=== PATIENT | female | born 1990 | race Caucasian/White ===

== ENCOUNTER 2016-05-30 09:28 | Inpatient (IN) | payer BC, OTHER ==
[~2016-05-30] VITALS: Ht 165.1 cm; Wt 65.5 kg
[~2016-05-30 09:28] MED LIST: ACETAMINOPHEN 325 MG TAB PO ONE
[2016-05-30] MEDS ORDERED: ACETAMINOPHEN 325 MG TAB PO ONE ×2 (09:45→12:42)
[2016-05-30 10:24] LABS: Basophils # (auto) 0 uL; DEFINITIVE VIEW TRANSMISSION; Eosinophils # (auto) 0 uL; Hematocrit 37.5 % (36.0-46.0); Hemoglobin 12.3 g/dL (12.2-16.2); Lymphocytes # (auto) 0.9 uL; Lymphocytes % (auto) 4.3 % (10.0-50.0); Mean Corpuscular Hemoglobin 27.2 pg (28.0-32.0); Mean Corpuscular Hgb Conc. 32.8 g/dL (32.0-36.0); Mean Corpuscular Volume 82.9 fL (80.0-100.0); Mean Platelet Volume 11.4 fL (7.4-10.4); Monocytes % (auto) 9.3 % (0.0-12.0); Neutrophils # (auto) 18.6 uL; Neutrophils % (auto) 86.4 % (37.0-80.0); Platelet Count (auto) 179 10^3/uL (140-450); Red Cell Distribution Width 14.3 % (11.6-16.0); White Blood Cell 21.5 10^3/uL (4.4-10.8)
[2016-05-30 10:27] LABS: Urine Bilirubin Negative (Negative); Urine Color Yellow (Yellow); Urine Glucose Normal (Normal); Urine Ketone TRACE (Negative); Urine Mucus FEW (None Seen); Urine Nitrite Negative (Negative); Urine RBC 8 /hpf (0 - 4); Urine Squamous Epithelial Cell FEW /hpf (<5); Urine Urobilinogen Normal (Negative); Urine WBC Clumps PRESENT /hpf (None Seen); Urine pH 5.5 (5.0-8.0)
[2016-05-30 10:28] LABS: Urine Blood 2+ /uL (Negative)
[2016-05-30 10:30] LABS: Albumin 3.5 g/dL (3.4-5.0); BUN/Creatinine Ratio 7.9; Bilirubin, Total 0.5 mg/dL (0.2-1.0); Calcium 8.5 mg/dL (8.5-10.1); Potassium 3.7 mmol/L (3.5-5.1); Total Protein 8.1 g/dL (6.4-8.2)
[2016-05-30] MEDS ORDERED: SODIUM CHLORIDE 0.9% 1,000 ML IVB ONE (11:23)
[2016-05-30] MEDS ORDERED: SODIUM CHLORIDE 0.9% 1,000 ML IV ONE (11:30)
[2016-05-30] MEDS ORDERED: cefTRIAXone 1GM/50ML D5W 50 ML IV ONE ×2 (11:30→13:30)
[2016-05-30 11:49] LABS: INR 1.09 (0.9-1.15); Partial Thromboplastin Time 28.7 sec (22.64-33.71); Prothrombin Time 11.8 sec (9.37-12.3)
[2016-05-30] MEDS: SODIUM CHLORIDE 0.9% 1,000 ML IV SCH ×2 (13:28→20:08)
[2016-05-30] MEDS ORDERED: KETOROLAC TROMETH 30 MG/ML 1ML VIAL IV ONE (13:30)
[2016-05-30] MEDS ORDERED: TEMAZEPAM 15 MG CAP PO PRN (13:30)
[2016-05-30] MEDS ORDERED: MORPHINE SULF INJ 2 MG/ML SYRINGE 1ML IV PRN (13:30)
[2016-05-30] MEDS: FAMOTIDINE (10MG/ML) 2ML VL IV SCH (13:30)
[2016-05-30] MEDS ORDERED: NITROGLYCERIN 0.4 MG SL TAB SL PRN (13:30)
[2016-05-30] MEDS ORDERED: LORazepam 0.5 MG TAB PO PRN (13:30)
[2016-05-30] MEDS: PROCHLORPERAZINE EDISYLATE 5 MG/ML 2ML VIAL IV PRN (17:59)
[2016-05-30] MEDS: MORPHINE SULF INJ 2 MG/ML SYRINGE 1ML IV PRN (17:59)
[2016-05-30] MEDS: HYDROcodone-ACET 5/325MG TAB PO PRN (20:53)
[2016-05-30] MEDS: ACETAMINOPHEN 500 MG TAB PO PRN (20:53)
[2016-05-30 21:54] VITALS: BP 115/67
[2016-05-31] MEDS: SODIUM CHLORIDE 0.9% 1,000 ML IV SCH ×4 (02:48→22:19)
[2016-05-31] MEDS: FAMOTIDINE (10MG/ML) 2ML VL IV SCH ×2 (03:02→13:47)
[2016-05-31] MEDS: MORPHINE SULF INJ 2 MG/ML SYRINGE 1ML IV PRN ×2 (03:02→08:32)
[2016-05-31] MEDS: PROCHLORPERAZINE EDISYLATE 5 MG/ML 2ML VIAL IV PRN ×3 (03:03→17:26)
[2016-05-31] MEDS: ACETAMINOPHEN 500 MG TAB PO PRN (04:06)
[2016-05-31 05:00] VITALS: BP 92/50
[2016-05-31 05:49] LABS: Basophils # (auto) 0 uL; Basophils % (auto) 0.1 % (0.0-2.0); Eosinophils # (auto) 0 uL; Hemoglobin 10.6 g/dL (12.2-16.2); Lymphocytes # (auto) 0.8 uL; Mean Corpuscular Hemoglobin 28.4 pg (28.0-32.0); Mean Corpuscular Volume 83.3 fL (80.0-100.0); Mean Platelet Volume 11.3 fL (7.4-10.4); Monocytes # (auto) 1.1 uL; Monocytes % (auto) 8.4 % (0.0-12.0); Neutrophils # (auto) 11.2 uL; Neutrophils % (auto) 85.5 % (37.0-80.0); Platelet Count (auto) 140 10^3/uL (140-450); Red Cell Distribution Width 14.3 % (11.6-16.0); SUSPECT VIEW TRANSMISSION; White Blood Cell 13.1 10^3/uL (4.4-10.8)
[2016-05-31 08:00] VITALS: BP 106/66
[2016-05-31] MEDS: cefTRIAXone 1GM/50ML D5W 50 ML IV SCH (09:38)
[2016-05-31] MEDS: HYDROcodone-ACET 5/325MG TAB PO PRN ×2 (11:39→17:21)
[2016-05-31 12:30] VITALS: BP 103/63
[2016-05-31 16:36] VITALS: BP 108/60
[2016-05-31 22:00] VITALS: BP 113/66
[2016-06-01] MEDS: PROCHLORPERAZINE EDISYLATE 5 MG/ML 2ML VIAL IV PRN ×2 (00:04→10:57)
[2016-06-01] MEDS: MORPHINE SULF INJ 2 MG/ML SYRINGE 1ML IV PRN (00:04)
[2016-06-01] MEDS: FAMOTIDINE (10MG/ML) 2ML VL IV SCH ×2 (01:28→13:30)
[2016-06-01 05:00] VITALS: BP 113/69
[2016-06-01 05:51] LABS: Basophils # (auto) 0 uL; Basophils % (auto) 0.2 % (0.0-2.0); Eosinophils # (auto) 0 uL; Hematocrit 29.8 % (36.0-46.0); Lymphocytes # (auto) 1.2 uL; Lymphocytes % (auto) 14.6 % (10.0-50.0); Mean Corpuscular Hemoglobin 27.9 pg (28.0-32.0); Mean Corpuscular Hgb Conc. 33.5 g/dL (32.0-36.0); Mean Corpuscular Volume 83.5 fL (80.0-100.0); Mean Platelet Volume 11.4 fL (7.4-10.4); Monocytes # (auto) 1.1 uL; Monocytes % (auto) 13.1 % (0.0-12.0); Neutrophils # (auto) 5.9 uL; Neutrophils % (auto) 72.1 % (37.0-80.0); Platelet Count (auto) 156 10^3/uL (140-450); Red Cell Distribution Width 14.4 % (11.6-16.0); SUSPECT VIEW TRANSMISSION; White Blood Cell 8.1 10^3/uL (4.4-10.8)
[2016-06-01] MEDS: HYDROcodone-ACET 5/325MG TAB PO PRN ×3 (05:56→16:48)
[2016-06-01 06:02] LABS: Potassium 3.4 mmol/L (3.5-5.1)
[2016-06-01 06:03] LABS: BUN/Creatinine Ratio 3.7; Calcium 7.8 mg/dL (8.5-10.1)
[2016-06-01] MEDS: SODIUM CHLORIDE 0.9% 1,000 ML IV SCH ×2 (07:21→14:21)
[2016-06-01 09:00] VITALS: BP 103/64
[2016-06-01] MEDS: cefTRIAXone 1GM/50ML D5W 50 ML IV SCH (09:07)
[2016-06-01] MEDS ORDERED: POTASSIUM CHL 20 Meq TABLET PO ONE (12:00)
[2016-06-01 13:00] VITALS: BP 109/61
[2016-06-01] MEDS: ACETAMINOPHEN 500 MG TAB PO PRN ×2 (15:08→23:03)
[2016-06-01 16:57] VITALS: BP 119/65
[2016-06-01 22:00] VITALS: BP 109/52
[2016-06-02] MEDS: FAMOTIDINE (10MG/ML) 2ML VL IV SCH ×2 (01:31→13:11)
[2016-06-02] MEDS: SODIUM CHLORIDE 0.9% 1,000 ML IV SCH ×3 (03:21→22:41)
[2016-06-02 05:00] VITALS: BP 101/64
[2016-06-02 06:20] LABS: Basophils # (auto) 0 uL; Basophils % (auto) 0.3 % (0.0-2.0); Eosinophils # (auto) 0 uL; Eosinophils % (auto) 0.2 % (0.0-7.0); Hematocrit 31.6 % (36.0-46.0); Hemoglobin 10.3 g/dL (12.2-16.2); Lymphocytes # (auto) 2.1 uL; Lymphocytes % (auto) 23.9 % (10.0-50.0); Mean Corpuscular Hemoglobin 27.1 pg (28.0-32.0); Mean Corpuscular Hgb Conc. 32.5 g/dL (32.0-36.0); Mean Corpuscular Volume 83.2 fL (80.0-100.0); Mean Platelet Volume 11.2 fL (7.4-10.4); Monocytes # (auto) 1.1 uL; Monocytes % (auto) 12.1 % (0.0-12.0); Neutrophils # (auto) 5.6 uL; Neutrophils % (auto) 63.5 % (37.0-80.0); Platelet Count (auto) 164 10^3/uL (140-450); Red Cell Distribution Width 14.6 % (11.6-16.0); SUSPECT VIEW TRANSMISSION; White Blood Cell 8.9 10^3/uL (4.4-10.8)
[2016-06-02] MEDS: ACETAMINOPHEN 500 MG TAB PO PRN (07:42)
[2016-06-02 08:30] VITALS: BP 113/72
[2016-06-02] MEDS: cefTRIAXone 1GM/50ML D5W 50 ML IV SCH (08:54)
[2016-06-02 12:30] VITALS: BP 106/68
[2016-06-02] MEDS: HYDROcodone-ACET 5/325MG TAB PO PRN (13:11)
[2016-06-02 17:07] VITALS: BP_DIAS 122
[2016-06-02 22:00] VITALS: BP 123/80
[2016-06-03] MEDS: HYDROcodone-ACET 5/325MG TAB PO PRN (00:26)
[2016-06-03] MEDS: FAMOTIDINE (10MG/ML) 2ML VL IV SCH ×2 (01:43→13:30)
[2016-06-03 05:30] VITALS: BP 107/64
[2016-06-03 05:44] LABS: Hematocrit 29.6 % (36.0-46.0)
[2016-06-03 05:49] LABS: BUN/Creatinine Ratio 8.8; Calcium 7.7 mg/dL (8.5-10.1); Potassium 3.6 mmol/L (3.5-5.1)
[2016-06-03] MEDS: SODIUM CHLORIDE 0.9% 1,000 ML IV SCH ×2 (06:13→08:54)
[2016-06-03 08:27] VITALS: BP 111/62
[2016-06-03] MEDS: cefTRIAXone 1GM/50ML D5W 50 ML IV SCH (08:53)
[2016-06-03 12:41] VITALS: BP 108/62
[2016-06-03] MEDS ORDERED: CIPR-217 PO (13:04)
[2016-06-03 13:09] VITALS: BP 108/62
== END 2016-06-03 14:00 | disposition home or self-care (01) | DRG 872 ==
LOC: ER 09:28 → TELE 09:29 → TELE-WESTW 17:44
PROVIDERS: ADMIT Internal Medicine; ATTEND Internal Medicine
DX: A41.9 Sepsis, unspecified organism (principal); N12 Tubulo-interstitial nephritis, not specified as acute or chronic; E87.1 Hypo-osmolality and hyponatremia; N20.0 Calculus of kidney; R00.0 Tachycardia, unspecified; B96.20 Unspecified Escherichia coli [E. coli] as the cause of diseases classified elsewhere; R73.9 Hyperglycemia, unspecified; Z87.440 Personal history of urinary (tract) infections; Z80.3 Family history of malignant neoplasm of breast
CPT/HCPCS: 36415; 71010; 74176; 80048; 80053; 81001; 81025; 82962; 83605; 83735; 84132; 85014; 85018; 85025; 85610; 85652; 85730; 87040; 87086; 87088; 87186; 94761; 96361; 96365; 96375; J0696; J3490

== ENCOUNTER → 2017-08-12 | Outpatient (CLI) | payer OTHER ==
[~2017-08-12] MED LIST changes: -ACETAMINOPHEN 325 MG TAB PO ONE; +CIPR-217 PO
[2017-08-12 12:41] LABS: Basophils # (auto) 0 uL; Basophils % (auto) 0.2 % (0.0-2.0); Eosinophils # (auto) 0 uL; Eosinophils % (auto) 0.5 % (0.0-7.0); Hematocrit 36.4 % (36.0-46.0); Hemoglobin 12.2 g/dL (12.2-16.2); Lymphocytes % (auto) 20.4 % (10.0-50.0); Mean Corpuscular Hemoglobin 28.1 pg (28.0-32.0); Mean Corpuscular Hgb Conc. 33.6 g/dL (32.0-36.0); Mean Corpuscular Volume 83.7 fL (80.0-100.0); Monocytes # (auto) 0.5 uL; Neutrophils # (auto) 7.2 uL; Neutrophils % (auto) 73.9 % (37.0-80.0); Nucleated Red Blood Cells % 0.1 %; Platelet Count (auto) 209 10^3/uL (140-450); Red Blood Cells 4.34 10^6/uL (4.0-5.20); Red Cell Distribution Width 13.3 % (11.8-14.3); White Blood Cell 9.8 10^3/uL (4.4-10.8)
[2017-08-12 13:25] LABS: Alcohol, Urine < 3.0 mg/dL (0-5); Amphetamine Screen, Urine NEGATIVE (NEGATIVE); Barbiturate Scree,Urine NEGATIVE (NEGATIVE); Benzodiazephine Screen, Urine NEGATIVE (NEGATIVE); Cannabinoid Screen, Urine NEGATIVE (NEGATIVE); Cocaine Screen, Urine NEGATIVE (NEGATIVE); Opiate Scree,Urine NEGATIVE (NEGATIVE); Phencyclidine Screen, Urine NEGATIVE (NEGATIVE)
== END | disposition home or self-care (01) ==
LOC: LAB 11:42
PROVIDERS: ATTEND Specialist
DX: Z34.80 Encounter for supervision of other normal pregnancy, unspecified trimester (principal); Z20.2 Contact with and (suspected) exposure to infections with a predominantly sexual mode of transmission; Z3A.00 Weeks of gestation of pregnancy not specified
CPT/HCPCS: 36415; 80307; 83036; 85025; 86703; 86762; 86850; 86900; 86901; 87086; 87340

== ENCOUNTER 2017-10-13 17:25 | Observation (INO) | payer OTHER ==
[~2017-10-13] VITALS: Ht 165.1 cm; Wt 66.7 kg
[2017-10-13] MEDS ORDERED: PREN-96 PO (18:26)
[2017-10-13] MEDS ORDERED: TERBUTALINE SULFATE 1 MG/ML 1ML VIAL SC ONE (19:15)
== END 2017-10-13 19:14 | disposition home or self-care (01) | DRG 781 ==
LOC: LDRP 17:25
PROVIDERS: ADMIT Specialist; ATTEND Specialist
DX: O26.892 Other specified pregnancy related conditions, second trimester (principal); R10.9 Unspecified abdominal pain; Z3A.22 22 weeks gestation of pregnancy
CPT/HCPCS: 59025; 81002; G0378

== ENCOUNTER → 2017-11-21 | Outpatient (CLI) | payer OTHER ==
[~2017-11-21] MED LIST changes: +PREN-96 PO
[2017-11-21 10:07] LABS: Basophils # (auto) 0 uL; Basophils % (auto) 0.1 % (0.0-2.0); Eosinophils # (auto) 0 uL; Eosinophils % (auto) 0.4 % (0.0-7.0); Hematocrit 32.6 % (36.0-46.0); Hemoglobin 10.6 g/dL (12.2-16.2); Lymphocytes # (auto) 1.9 uL; Lymphocytes % (auto) 17.8 % (10.0-50.0); Mean Corpuscular Hgb Conc. 32.6 g/dL (32.0-36.0); Mean Corpuscular Volume 85.8 fL (80.0-100.0); Monocytes # (auto) 0.4 uL; Monocytes % (auto) 3.8 % (0.0-12.0); Neutrophils # (auto) 8.2 uL; Neutrophils % (auto) 77.9 % (37.0-80.0); Nucleated Red Blood Cells % 0.1 %; Platelet Count (auto) 265 10^3/uL (140-450); Red Cell Distribution Width 13.5 % (11.8-14.3); White Blood Cell 10.6 10^3/uL (4.4-10.8)
== END | disposition home or self-care (01) ==
LOC: LAB 08:54
PROVIDERS: ATTEND Specialist
DX: O99.810 Abnormal glucose complicating pregnancy (principal); Z3A.27 27 weeks gestation of pregnancy
CPT/HCPCS: 36415; 82951; 85025

== ENCOUNTER → 2018-01-10 | Outpatient (CLI) | payer OTHER ==
[2018-01-10 09:42] LABS: Basophils # (auto) 0 uL; Eosinophils # (auto) 0 uL; Hemoglobin 11.1 g/dL (12.2-16.2); Monocytes # (auto) 0.5 uL
[2018-01-10 09:45] LABS: Basophils % (auto) 0.2 % (0.0-2.0); Eosinophils % (auto) 0.4 % (0.0-7.0); Lymphocytes # (auto) 1.8 uL; Lymphocytes % (auto) 16.1 % (10.0-50.0); Mean Corpuscular Hemoglobin 27.2 pg (28.0-32.0); Mean Corpuscular Hgb Conc. 32.8 g/dL (32.0-36.0); Mean Corpuscular Volume 82.9 fL (80.0-100.0); Monocytes % (auto) 4.6 % (0.0-12.0); Neutrophils % (auto) 78.7 % (37.0-80.0); Nucleated Red Blood Cells % 0.1 %; Platelet Count (auto) 262 10^3/uL (140-450); Red Cell Distribution Width 13.2 % (11.8-14.3); White Blood Cell 11.5 10^3/uL (4.4-10.8)
== END | disposition home or self-care (01) ==
LOC: LAB 09:13
PROVIDERS: ATTEND Specialist
DX: O23.593 Infection of other part of genital tract in pregnancy, third trimester (principal); Z3A.34 34 weeks gestation of pregnancy
CPT/HCPCS: 36415; 85025; 87081

== ENCOUNTER 2018-01-31 10:45 | Observation (INO) | payer OTHER | END 2018-01-31 11:30 | disposition home or self-care (01) | DRG 833 | LOC: LDRP 10:45 | PROVIDERS: ADMIT Specialist; ATTEND Specialist | DX: O36.8130 Decreased fetal movements, third trimester, not applicable or unspecified (principal); Z3A.37 37 weeks gestation of pregnancy | CPT/HCPCS: 59025; 81002; G0378 ==

== ENCOUNTER 2018-02-12 13:55 | Observation (INO) | payer OTHER ==
[~2018-02-12 13:55] MED LIST changes: -CIPR-217 PO
== END 2018-02-12 15:15 | disposition home or self-care (01) | DRG 833 ==
LOC: LDRP 13:55
PROVIDERS: ADMIT Specialist; ATTEND Specialist
DX: O42.92 Full-term premature rupture of membranes, unspecified as to length of time between rupture and onset of labor (principal); O62.9 Abnormality of forces of labor, unspecified; O26.893 Other specified pregnancy related conditions, third trimester; N89.8 Other specified noninflammatory disorders of vagina; Z3A.39 39 weeks gestation of pregnancy
CPT/HCPCS: 59025; 76815; 81002; G0378

== ENCOUNTER 2018-02-17 07:00 | Inpatient (IN) | payer OTHER ==
[~2018-02-17] VITALS: Ht 165.1 cm; Wt 77.1 kg
[2018-02-17] MEDS ORDERED: LACT. RINGERS/OXYTOCIN 20UNITS 1,000 ML IV SCH (07:48)
[2018-02-17] MEDS ORDERED: PHISODERM TOP SOLN 240ML BTL TOP PRN (08:00)
[2018-02-17] MEDS ORDERED: NALBUPHINE HCL 10 MG/1ml INJECTION IV PRN (08:00)
[2018-02-17] MEDS ORDERED: METHYLERGONOVINE MALEATE 0.2 MG/ML AMP IM PRN (08:00)
[2018-02-17] MEDS ORDERED: LIDOCAINE 1% (LOCAL ANESTH.) PF 5ml SDV IJ ONE (08:00)
[2018-02-17] MEDS ORDERED: DERMOPLAST 60ML BOTTLE TOP PRN (08:00)
[2018-02-17] MEDS: LACTATED RINGER'S 1,000 ML IV SCH ×2 (08:25→12:49)
[2018-02-17 08:52] LABS: Basophils # (auto) 0 uL; Eosinophils # (auto) 0.1 uL; Lymphocytes # (auto) 2.2 uL; Monocytes # (auto) 0.5 uL; Red Cell Distribution Width 14.2 % (11.8-14.3); White Blood Cell 9.2 10^3/uL (4.4-10.8)
[2018-02-17 08:55] LABS: Basophils % (auto) 0.3 % (0.0-2.0); Hematocrit 29.8 % (36.0-46.0); Hemoglobin 9.9 g/dL (12.2-16.2); Mean Corpuscular Hemoglobin 26.4 pg (28.0-32.0); Mean Corpuscular Hgb Conc. 33.1 g/dL (32.0-36.0); Mean Corpuscular Volume 79.8 fL (80.0-100.0); Monocytes % (auto) 5.7 % (0.0-12.0); Neutrophils # (auto) 6.4 uL; Platelet Count (auto) 235 10^3/uL (140-450); Red Blood Cells 3.74 10^6/uL (4.0-5.20)
[2018-02-17 09:07] LABS: Urine Bacteria FEW /hpf (None Seen); Urine Blood Negative /uL (Negative); Urine Mucus FEW (None Seen); Urine WBC 7 /hpf (0 - 5)
[2018-02-17 09:10] LABS: Albumin 2.4 g/dL (3.4-5.0); Calcium 7.8 mg/dL (8.5-10.1); Potassium 3.6 mmol/L (3.5-5.1)
[2018-02-17 09:14] LABS: BUN/Creatinine Ratio 10.9; Bilirubin, Total 0.4 mg/dL (0.2-1.0); Total Protein 6.7 g/dL (6.4-8.2)
[2018-02-17 09:32] LABS: INR 0.87 (0.9-1.15); Partial Thromboplastin Time 26.7 sec (23.78-33.04); Prothrombin Time 9.4 sec (9.27-12.13)
[2018-02-17] MEDS ORDERED: ePHEDrine SULFATE 50 MG/ML AMP IV ONE (18:45)
[2018-02-17] MEDS ORDERED: fentaNYL CITRATE 100 MCG/2 ML VL IV ONE (18:45)
[2018-02-17] MEDS ORDERED: NALOXONE HCL 0.4 MG/ML VIAL IV ONE (18:45)
[2018-02-17] MEDS ORDERED: fentaNYL W ROPIVACAINE 150 ML EPI SCH (18:45)
[2018-02-17] MEDS ORDERED: LIDOCAINE HCL 2 %PF INJ 10ML AMP IJ ONE (18:45)
[2018-02-17] MEDS ORDERED: ACETAMINOPHEN 325 MG TAB PO ONE (22:15)
[2018-02-17] MEDS ORDERED: cefTRIAXone 1GM/50ML D5W 50 ML IV ONE (22:27)
[2018-02-17] MEDS ORDERED: ceFAZolin 1GM/50ML 50 ML IV SCH (22:30)
[2018-02-18] MEDS: WITCH HAZEL-GLYCERIN PAD TOP PRN (00:45)
[2018-02-18 03:44] VITALS: BP 107/55
[2018-02-18 04:08] LABS: RPR Non Reactive (Non Reactive)
[2018-02-18 07:00] VITALS: BP 110/57
[2018-02-18] MEDS: IBUPROFEN 600 MG TAB PO PRN ×3 (08:05→19:45)
[2018-02-18] MEDS: DOCUSATE CALCIUM 240 MG CAP PO SCH (09:55)
[2018-02-18 11:00] VITALS: BP 109/59
[2018-02-18 15:00] VITALS: BP 120/69
[2018-02-18 19:00] VITALS: BP 126/75
[2018-02-18 23:00] VITALS: BP 107/84
[2018-02-19] MEDS: IBUPROFEN 600 MG TAB PO PRN ×2 (00:33→08:09)
[2018-02-19 03:21] VITALS: BP 102/56
[2018-02-19 07:30] VITALS: BP 105/61
[2018-02-19] MEDS ORDERED: INFLUENZA QUAD 2018-2019 0.5 ML SYRG IM ONE (08:45)
[2018-02-19] MEDS ORDERED: TETANUS-DIPTH-ACEL PERTUSSIS 0.5ML SYRG IM ONE (08:45)
[2018-02-19] MEDS: DOCUSATE CALCIUM 240 MG CAP PO SCH (10:00)
[2018-02-19] MEDS: WITCH HAZEL-GLYCERIN PAD TOP PRN (10:51)
== END 2018-02-19 10:50 | disposition home or self-care (01) | DRG 807 ==
LOC: LDRP 07:00
PROVIDERS: ADMIT Obstetrics & Gynecology; ATTEND Obstetrics & Gynecology
PROC: 10D07Z6 Extraction of Products of Conception, Vacuum, Via Natural or Artificial Opening (ICD-10-PCS; principal; 2018-02-17)
PROC: 3E0R3BZ Introduction of Anesthetic Agent into Spinal Canal, Percutaneous Approach (ICD-10-PCS; 2018-02-17)
PROC: 00HU33Z Insertion of Infusion Device into Spinal Canal, Percutaneous Approach (ICD-10-PCS; 2018-02-17)
PROC: 3E0P7VZ Introduction of Hormone into Female Reproductive, Via Natural or Artificial Opening (ICD-10-PCS; 2018-02-17)
PROC: 3E033VJ Introduction of Other Hormone into Peripheral Vein, Percutaneous Approach (ICD-10-PCS; 2018-02-17)
PROC: 10907ZC Drainage of Amniotic Fluid, Therapeutic from Products of Conception, Via Natural or Artificial Opening (ICD-10-PCS; 2018-02-17)
DX: O75.2 Pyrexia during labor, not elsewhere classified (principal); Z37.0 Single live birth; Z3A.40 40 weeks gestation of pregnancy; Z23 Encounter for immunization
CPT/HCPCS: 36415; 59409; 59414; 62282; 80053; 81001; 81002; 85025; 85610; 85730; 86592; 86850; 86900; 86901; 90674; 90715; 94762; 96372; A6257; G0378; J0696; J2590; J3010